=== PATIENT | female | born 1955 | race Caucasian/White ===

== ENCOUNTER → 2017-07-07 | Outpatient (CLI) | payer BC, OTHER ==
[~2017-07-07] MED LIST: ASPI81TA28 PO; BIOT1CAP9; CLC100 PO; CYAN10005 PO; FEXO1TAB49 PO; FEXO5TAB2 PO; HYDR-3124 PO; MAGN400T6 PO; NXM/40 PO; ONDA4TAB10 SL; SIMV20TA2 PO; SUCR5SUS PO; ULT/50 PO; VENL150C PO; VTMD1000 PO; ZOLP10TA6 PO
--- NOTE | 2017-07-07 12:22 | DIAGNOSTIC IMAGING REPORT ---
(BARIUM SWALLOW) ESOPHAGUS CLINICAL HISTORY: GERDreflux COMPARISON STUDY: None FLUOROSCOPY TIME: 1.7 minutes. FINDINGS: Patient initiates the swallowing function well. No evidence for aspiration. Mild esophageal irritability. The esophagus is normal in course and caliber. There is a small para esophageal hiatal hernia. There are findings of considerable reflux to the proximal aspect of the esophagus. IMPRESSION: 1.Para Esophageal hiatal hernia. 2. Considerable gastroesophageal reflux to the proximal esophagus. 3. Mild esophageal spasm/irritability. The above report was generated using voice recognition software. It may contain grammatical, syntax or spelling errors. Electronically signed by: Nolan Herzog M.D. 07/07/2017 12:21 PM Dictated Date/Time: 07/07/2017 12:19 PM
== END | disposition home or self-care (01) ==
LOC: C.RAD 11:00
PROVIDERS: ATTEND Surgery
DX: K21.9 Gastro-esophageal reflux disease without esophagitis (principal); K44.9 Diaphragmatic hernia without obstruction or gangrene

== ENCOUNTER 2017-07-16 05:13 | Observation (INO) | payer BC, OTHER ==
[2017-07-07 13:45] VITALS: BMI 36.0
--- NOTE | 2017-07-07 14:22 | PAT Medication Instructions ---
Service Date Jul 07, 2017. Current Home Medication List Aspirin (Aspirin Ec), 81 MG PO QAM Biotin (Biotin), Unknown Dose QAM Cholecalciferol (Vitamin D3), 2,000 INTER.UNIT PO QAM Cyanocobalamin (Vitamin B-12), 2,000 MCG PO QAM Esomeprazole Magnesium (Nexium), 40 MG PO BID Fexofenadine Hcl (Sabi Allergy), 1 TAB PO QAM Fexofenadine-Pseudoephedrine (Sabi-D 12 Hour Allergy), 1 TAB PO BID Hydroxyzine Hcl (Atarax), 10 MG PO UD PRN for anxiety Magnesium Oxide (Mag-Ox), 400 MG PO QAM Simvastatin (Zocor), 20 MG PO QAM Sucralfate (Carafate), 1 GM PO UD PRN for PRN Venlafaxine Hcl (Effexor Xr), 1 CAP PO QAM Zolpidem Tartrate (Zolpidem Tartrate), 1 TAB PO HS PRN for Sleep Medication Instructions For Your Scheduled Surgery -Follow your surgeon's instructions for: Aspirin (Aspirin Ec), 81 MG PO QAM - Hold the following medications the morning of surgery: Biotin (Biotin), Unknown Dose QAM Cholecalciferol (Vitamin D3), 2,000 INTER.UNIT PO QAM Cyanocobalamin (Vitamin B-12), 2,000 MCG PO QAM Fexofenadine Hcl (Sabi Allergy), 1 TAB PO QAM Magnesium Oxide (Mag-Ox), 400 MG PO QAM Sucralfate (Carafate), 1 GM PO UD PRN for PRN - Take the following medications the morning of surgery with a sip of water: Esomeprazole Magnesium (Nexium), 40 MG PO BID Hydroxyzine Hcl (Atarax), 10 MG PO UD PRN for anxiety (if needed) Simvastatin (Zocor), 20 MG PO QAM Venlafaxine Hcl (Effexor Xr), 1 CAP PO QAM - Take the following medications as scheduled the night before surgery: Esomeprazole Magnesium (Nexium), 40 MG PO BID Hydroxyzine Hcl (Atarax), 10 MG PO UD PRN for anxiety (if needed) Sucralfate (Carafate), 1 GM PO UD PRN for PRN (if needed) Zolpidem Tartrate (Zolpidem Tartrate), 1 TAB PO HS PRN for Sleep (if needed) If you have any questions please call us at [phone] or [phone] or [phone]
[2017-07-07 15:21] LABS: BASO % 0.1 %; BASO ABS # 0.01 K/uL (0-0.2); HEMATOCRIT 41.3 % (37-47); HEMOGLOBIN 13.7 g/dL (12.0-16.0); IG# 0.01 K/uL (0.00-0.02); LYMPH % 41.2 %; MEAN CELL VOLUME 86.2 fL (80-100); MEAN CORPUSCULAR HEMOGLOBIN 28.6 pg (25-34); MEAN CORPUSCULAR HGB CONC 33.2 g/dl (32-36); MEAN PLATELET VOLUME 10.3 fL (7.4-10.4); MONO % 6.1 %; MONO ABS # 0.49 K/uL (0.11-0.59); NEUT % 52.5 %; PLATELET COUNT 393 K/uL (130-400); RED CELL DISTRIBUTION WIDTH CV 14.6 % (11.5-14.5); RED CELL DISTRIBUTION WIDTH SD 45.9 fL (36.4-46.3); WHITE BLOOD COUNT 8.01 K/uL (4.8-10.8)
[2017-07-07 15:30] LABS: CALCIUM 9.1 mg/dl (8.5-10.1); CREATININE 0.87 mg/dl (0.60-1.20); POTASSIUM 4.4 mmol/L (3.5-5.1)
[2017-07-16] VITALS (7 sets, daily range): BP systolic 128–160; BP diastolic 74–82; PULSE 68–79; TEMP 36.5–37; O2SAT 91–95; Ht 162.6 cm; Wt 94.8 kg
[~2017-07-16] VITALS: Ht 162.6 cm; Wt 94.8 kg
[~2017-07-16 05:13] MED LIST changes: -CLC100 PO; -ONDA4TAB10 SL; -ULT/50 PO
[2017-07-16] MEDS ORDERED: LACTATED RINGER'S 1000ML 1,000 ML IV SCH (06:00)
--- NOTE | 2017-07-16 06:43 | History & Physical Bridge Note ---
H&P Re-Evaluation Bridge Note: I have examined the patient, reviewed the History & Physical and in the interval since the performance of the History & Physical I have noted the following changes of clinical significance: No changes noted. As usual, we will perform an esophagogastroscopy at the conclusion of the case.
[2017-07-16] MEDS ORDERED: LIDOCAINE HCL 2% 2 ML VIAL (20MG/ML) ONE (06:45)
[2017-07-16] MEDS ORDERED: DEXAMETHASONE SOD INJ 4 MG/ML VIAL ONE (06:45)
[2017-07-16] MEDS ORDERED: PROPOFOL IV EMULSION 10 MG/ML 20 ML VIAL IV ONE (06:45)
[2017-07-16] MEDS ORDERED: MIDAZOLAM HCL 1 MG/ML 2ML VIAL ONE (06:45)
[2017-07-16] MEDS ORDERED: ONDANSETRON INJ 2 MG/ML 2 ML VIAL ONE ×2 (06:45→11:31)
[2017-07-16] MEDS ORDERED: FENTANYL CITRATE INJ 50 MCG/1 ML 2 ML VIAL ONE ×4 (06:46→11:33)
[2017-07-16] MEDS ORDERED: CLINDAMYCIN PHOS 150 MG/ML 2 ML VIAL ONE ×2 (08:18→09:07)
[2017-07-16] MEDS ORDERED: HYDROmorphone INJ 0.5 MG/0.5 ML SYR IV PRN (09:00)
[2017-07-16] MEDS ORDERED: LABETALOL HCL IV 5 MG/ML 20ML IV PRN (09:00)
[2017-07-16] MEDS ORDERED: ONDANSETRON INJ 2 MG/ML 2 ML VIAL IV PRN ×2 (09:00→12:00)
[2017-07-16] MEDS ORDERED: ATROPINE SULFATE 0.1 MG/ML 5ML SYR IV PRN (09:00)
[2017-07-16] MEDS ORDERED: ATROPINE SULFATE 0.4 MG/ML 1 ML VIAL ONE (10:56)
[2017-07-16] MEDS ORDERED: KETOROLAC TROMETHAMINE 30 MG/ML VIAL ONE (11:20)
[2017-07-16] MEDS ORDERED: NEOSTIGMINE METHYLSULFATE 5 MG/5 ML SYR ONE (11:20)
[2017-07-16] MEDS ORDERED: GLYCOPYRROLATE INJ 0.2 MG/ML VIAL ONE (11:20)
--- NOTE | 2017-07-16 11:43 | [facility] Post Operative Brief Note ---
Immediate Operative Summary Operative Date Jul 16, 2017. Pre-Operative Diagnosis Hiatal hernia Gastroesophageal reflux disease Post-Operative Diagnosis Same Procedure(s) Performed Robotic Assisted Hiatal Hernia Repair with Mesh and Fundoplication Esophagogastroduodenoscopy Surgeon Dr Bella Platform Builder Surgeon(s) Jonny Burkett PA-C Estimated Blood Loss 50ml Findings Consistent with Post-Op Diagnosis Specimens A. gastroesophageal fat pad Anesthesia Type General
[2017-07-16] MEDS ORDERED: OXYCODONE HCL IR 5 MG TAB (IMMEDIATE RELEASE) PO PRN (12:00)
[2017-07-16] MEDS ORDERED: METOCLOPRAMIDE HCL INJ 5 MG/ML 2 ML VIAL ONE (12:08)
[2017-07-16] MEDS ORDERED: ROCURONIUM BROMIDE 10 MG/ML 5 ML VIAL IV ONE (12:14)
--- NOTE | 2017-07-16 12:45 | Anesthesiology Progress Note ---
Anesthesia Post Op Note Date & Time Jul 16, 2017 at 12:45 Vital Signs Pain Intensity: 0 Vital Signs Past 12 Hours Date Time Temp Pulse Resp B/P (MAP) Pulse Ox O2 Delivery O2 Flow Rate FiO2 07/16/17 12:40 36.8 69 24 150/77 94 Nasal Cannula 3 07/16/17 12:30 67 15 152/72 94 Nasal Cannula 3 07/16/17 12:20 60 20 144/73 92 Oxymask 10 07/16/17 12:10 67 23 142/75 96 Oxymask 10 07/16/17 12:02 36.1 76 24 149/89 93 Oxymask 10 07/16/17 05:41 37 72 18 160/82 (108) 95 Room Air Notes Mental Status: alert / awake / arousable, participated in evaluation Pt Amnestic to Procedure: Yes Nausea / Vomiting: adequately controlled Pain: adequately controlled Airway Patency, RR, SpO2: stable & adequate BP & HR: stable & adequate Hydration State: stable & adequate Anesthetic Complications: no major complications apparent
--- NOTE | 2017-07-16 13:02 | OPERATIVE REPORT ---
DATE OF OPERATION: 07/16/2017 PREOPERATIVE DIAGNOSIS: Hiatal hernia with gastroesophageal reflux refractory to medical therapy. POSTOPERATIVE DIAGNOSIS: Same. OPERATIVE PROCEDURE: 1. Robotic-assisted laparoscopic repair of hiatal hernia. 2. Robot-assisted laparoscopic Kasie fundoplication. SURGEON: Waldemar TOMLIN MD DOOR PATCHER: JASON Martinez (MrChandler Burkett was present for the entire case and was instrumental in port placement as well as being at the bedside while I was at the console. He also closed the skin incisions at the completion of the case.) DESCRIPTION OF PROCEDURE: The patient was brought to operating room and laid in supine position. General anesthesia induced and endotracheal tube was induced. After prepped and draped in usual sterile fashion, calling appropriate timeout and given antibiotics. A midline incision was made above the umbilicus large enough for a 12 mm camera port. A 5 mm port was placed initially with CO2 insufflation and then the 5 mm scope was placed and this helped direct us to the other ports. The 8 mm ports were placed in the high below the costal margin after CO2 had been insufflated in the midclavicular line. Two 5 mm ports were placed laterally. The one on the left of was a robotic 5 mm port and one on the right was 5 mm laparoscopic port. We then placed a liver retractor through the right side at the lateral port to retract the left lobe of the liver up. This exposed the hiatus quite nicely. We then replaced the 5 mm port for the camera port with a 12 mm port and then put a 12 mm port down near the umbilicus on the right for the gift shop assistant's port. The patient was then placed in a marked reverse Trendelenburg with her feet down and then we brought the robot in and docked the arms. Instruments were placed. I then sat at the console. There was really nothing in the way of adhesions. She had a large hiatal hernia. I then divided the hernia sac just inside of the superior aspect of the crura. This then developed quite a nice plane and we were able to retract using the bipolar dissector to do this essentially bloodless leak. This brought this all the way up and around the esophagus. The hernia sac was able to be peeled off quite nicely. We identified both the right and left vagus nerves and care was taken to avoid them. We did not get into the pleura. We peeled the sac down and included it with our rather large fat pad at the gastroesophageal junction. The vessel sealer from the vent was used to divide this and delivered it off the field in the fat and hernia sac was delivered off the field and the hernia sac. She had a very large hernia. I used a 0 silk in an interrupted fashion to reapproximate the crura quite nicely. I used 3 separate sutures. We did place a 54 bougie prior to doing this. We had enough space posterior and did not make this too tight, although I did place a single suture anteriorly to reapproximate the anterior crura. I am quite happy with this. I then reinforced this by using OviTex absorbable mesh. I cut a piece to fit around the repair and from around anteriorly, although we did not go all the way around the esophagus. It was sutured in place with 2-0 Vicryl sutures. I then freed up the greater curvature using the Harmonic scalpel. The short gastrics were taken down and we had plenty of room. I then pulled the posterior aspect of the fundus on the left down in a retroesophageal and retrogastric fashion and then sutured this with a 2-0 silk suture to the anterior fundus which had been left on the left side. This came around nicely and was not too tight. I then placed another suture 1 cm above this and included the esophagus. I then placed another suture anterior this including the esophagus and placed one last 2-0 silk suture to anchor the fundoplication to the anterior diaphragmatic crura. An upper endoscopy was then performed. We could be seen that the repair looked quite good upon retroflexion. We also insufflated air and there was no evidence of a leak. Suctioned the air out and then used an EndoStitch to close the two 12 mm ports. 4-0 Monocryl was used in running subcuticular fashion to approximate all the wound edges. Antimicrobial dressings were placed. She tolerated it quite well. I attest to the content of the Intraoperative Record and any orders documented therein. Any exceptions are noted below. SENAIT
[2017-07-16] MEDS: D5W AND 1/2NSS 1,000 ML IV SCH ×2 (14:02→21:44)
[2017-07-16] MEDS: ACETAMINOPHEN IV 1,000 MG in EMPTY BAG 0 ML IV SCH ×2 (14:32→21:43)
[2017-07-16] MEDS ORDERED: IV FLUIDS COMPLETED PRN (15:15)
[2017-07-16] MEDS: MoRPHine SULFATE 2 MG/ML CARP IV PRN (15:23)
[2017-07-16] MEDS: KETOROLAC TROMETHAMINE 15 MG/ML VIAL IV. SCH (19:40)
[2017-07-16] MEDS: PANTOprazole SOD 40 MG TAB PO SCH (19:41)
[2017-07-16] MEDS: DOCUSATE SODIUM 100 MG CAP PO SCH (19:41)
[2017-07-16] MEDS: METOCLOPRAMIDE HCL INJ 5 MG/ML 2 ML VIAL IV. SCH (19:41)
[2017-07-16] MEDS ORDERED: SIMVASTATIN 20 MG TAB PO SCH (21:00)
[2017-07-17] VITALS: O2SAT 93
[2017-07-17 00:53] VITALS: BP 131/74; PULSE 81; TEMP 36.4; O2SAT 88
[2017-07-17] MEDS: MoRPHine SULFATE 2 MG/ML CARP IV PRN (02:40)
[2017-07-17] MEDS: KETOROLAC TROMETHAMINE 15 MG/ML VIAL IV. SCH (04:11)
[2017-07-17] MEDS: METOCLOPRAMIDE HCL INJ 5 MG/ML 2 ML VIAL IV. SCH (04:11)
[2017-07-17 05:00] VITALS: BP 132/73; PULSE 74; TEMP 36.4; O2SAT 86; O2SAT 95
[2017-07-17] MEDS: ACETAMINOPHEN IV 1,000 MG in EMPTY BAG 0 ML IV SCH (05:36)
[2017-07-17] MEDS ORDERED: CLC100 PO (08:07)
--- NOTE | 2017-07-17 08:11 | Discharge Instructions ---
Discharge Instructions Date of Service Jul 17, 2017. Admission Reason for Admission: Hiatial Hernia, Gerd Discharge Discharge Diagnosis / Problem: Hiatial Hernia, Gerd Discharge Goals Goal(s): Decrease discomfort Activity Recommendations Activity Limitations: as noted below Lifting Limitations: no more than 10 pounds 1. Do not lift objects heavier than 10 pounds until cleared to do so by Dr. Bella. 2. Do not drive until cleared to do so by Dr. Bella. . Instructions / Follow-Up Instructions / Follow-Up 1. You may remove dressings in 3 days and shower thereafter. No tub baths. 2. Office appointment with Dr. Bella in 1 week. Office will call with date and time of appointment. 3. Continue liquid diet and do not advance until cleared to do so by Dr. Bella. Current Hospital Diet Patient's current hospital diet: Clear Liquid Diet Discharge Diet Recommended Diet: Full Liquid Diet Procedures Procedures Performed: Robotic Assisted Hiatal Hernia Repair with Mesh and Fundoplication Esophagogastroduodenoscopy Pending Studies Studies pending at discharge: no Medical Emergencies . Who to Call and When: Medical Emergencies: If at any time you feel your situation is an emergency, please call 911 immediately. . Non-Emergent Contact Non-Emergency issues call your: Surgeon Call Non-Emergent contact if: you have a fever, your pain is not controlled, wound has increased drainage . "Provider Documentation" section prepared by Amol Burkett. .
[2017-07-17] MEDS ORDERED: ULT/50 PO (08:32)
[2017-07-17] MEDS ORDERED: ONDA4TAB10 SL (08:33)
--- NOTE | 2017-07-17 08:39 | DIAGNOSTIC IMAGING REPORT ---
SINGLE CONTRAST GASTROGRAFIN SWALLOW CLINICAL HISTORY: Postoperative day 1 status post Kasie fundoplication. COMPARISON STUDY: Barium swallow July 07, 2017. FLUOROSCOPY TIME: 1.3 minutes. TECHNIQUE: A single contrast Gastrografin swallow was performed. 8 fluoroscopic images were obtained. FINDINGS: No esophageal mass or stricture is identified although mucosal detail is diminished on this single contrast Gastrografin study. There is moderate smooth narrowing at the level of the gastroesophageal junction consistent with an intact wrap. No contrast extravasation is identified. Moderate esophageal dysmotility is noted. Holdup of contrast at the level of the wrap was noted however contrast did pass into the stomach. [employer] image demonstrates mild left basilar opacity and a possible small left pleural effusion. IMPRESSION: 1. No contrast extravasation to suggest leak. 2. Moderate smooth narrowing at the gastroesophageal junction consistent with an intact wrap. Transient hold up of contrast at the level of the wrap is not unexpected in the early postoperative setting. 3. Moderate esophageal dysmotility. Electronically signed by: Levar Gupta M.D. 07/17/2017 8:31 AM Dictated Date/Time: 07/17/2017 8:27 AM
[2017-07-17] MEDS ORDERED: ACETAMINOPHEN 325 MG TAB PO PRN (08:45)
--- NOTE | 2017-07-17 08:58 | Anesthesiology Progress Note ---
Anesthesia Post Op Note Date & Time Jul 17, 2017 at 08:57 Vital Signs Pain Intensity: 3.0 Vital Signs Past 12 Hours Date Time Temp Pulse Resp B/P (MAP) Pulse Ox O2 Delivery O2 Flow Rate FiO2 07/17/17 05:00 95 Nasal Cannula 2.0 07/17/17 05:00 36.4 74 18 132/73 (92) 86 Room Air 07/17/17 00:53 36.4 81 20 131/74 (93) 88 Room Air 07/17/17 00:00 93 Room Air 2.0 07/16/17 21:17 36.9 68 16 156/76 (102) 91 Room Air Notes Mental Status: alert / awake / arousable, participated in evaluation Pt Amnestic to Procedure: Yes Nausea / Vomiting: adequately controlled Pain: adequately controlled Airway Patency, RR, SpO2: stable & adequate BP & HR: stable & adequate Hydration State: stable & adequate Anesthetic Complications: no major complications apparent
[2017-07-17] MEDS ORDERED: ENOXAPARIN 40 MG/0.4 ML SYR SQ SCH (09:00)
[2017-07-17] MEDS ORDERED: ASPIRIN 81 MG ECTAB PO SCH (09:00)
[2017-07-17] MEDS ORDERED: VENLAFAXINE HCL XR 150 MG CAPXR PO SCH (09:00)
--- NOTE | 2017-07-17 09:00 | DISCHARGE SUMMARY ---
DISCHARGE DIAGNOSES: Large hiatal hernia with gastroesophageal reflux refractory to medical management. HOSPITAL COURSE: This is a very nice 61-year-old female who was found to have a very large hiatal hernia. This is a type 1 sliding hernia. She was not responding well to medical management and was referred for an evaluation for possible surgical management. After evaluation, I felt that she would be a good candidate. We saw very little in the way of dysmotility on a barium swallow. On 07/16/2017, the patient underwent an uncomplicated robotic laparoscopic repair of her hiatal hernia. She had a very large hiatal defect. We repaired this primarily and then I placed a patch over this which was a bioabsorbable OviTex patch. This was sutured in place. We did not have to do any lengthening. I mobilized her esophagus and identified both vagus nerves. We mobilized her fairly high up and we had plenty of length intraabdominally. A floppy Kasie was under no tension was performed. She tolerated it well and an upper endoscopy at the conclusion of the case showed no evidence of any esophageal ulcers or gastric ulcers. The wrap looked quite good on retroflexion The patient had an uneventful night after surgery and tolerated clear liquids. A barium swallow on the following day looked quite good. I reviewed this with Dr. Shai Gupta. There is no evidence of extravasation and the dye went through nicely. She felt quite good, although she is having some incisional pain. We sent her home on Ultram for pain and also Zofran as I told her it was very important for her not to vomit. We had a long discussion about her diet. I want her on clear liquids until I see her back in the office. We will see her back next week to see how things look. All in all, I was quite pleased with her.
[2017-07-17 09:37] VITALS: BP 132/73; PULSE 74; TEMP 36.4; O2SAT 95
[2017-07-17] MEDS: PANTOprazole SOD 40 MG TAB PO SCH (09:54)
[2017-07-17] MEDS: DOCUSATE SODIUM 100 MG CAP PO SCH (09:59)
== END 2017-07-17 10:25 | disposition home or self-care (01) ==
LOC: C.ACU 05:13 → C.MSN 11:54 → ENRESERV 12:39
PROVIDERS: ADMIT Surgery; ATTEND Surgery
DX: K44.9 Diaphragmatic hernia without obstruction or gangrene (principal); K21.9 Gastro-esophageal reflux disease without esophagitis; I25.10 Atherosclerotic heart disease of native coronary artery without angina pectoris; E66.9 Obesity, unspecified; Z68.36 Body mass index [BMI] 36.0-36.9, adult; F41.9 Anxiety disorder, unspecified; Z98.51 Tubal ligation status; Z98.890 Other specified postprocedural states; Z79.899 Other long term (current) drug therapy
CPT/HCPCS: 43280; S2900